=== PATIENT | female | born 1945 | race Caucasian/White ===

== ENCOUNTER 2016-09-26 08:25 | Inpatient (IN) | payer MEDICARE, OTHER ==
[~2016-09-26] VITALS: Ht 165.1 cm; Wt 81.8 kg
[2016-09-26] MEDS ORDERED: NEB-ALBUTEROL 2.5 MG/3 ML INH ONE (08:51)
[2016-09-26] MEDS ORDERED: Furosemide 40 MG/4 ML VIAL ONE (09:54)
[2016-09-26] MEDS ORDERED: NITROGLYCERIN 2% OINT 1 INCH PKT TOPICAL ONE (10:07)
[2016-09-26] MEDS ORDERED: ASPIRIN 81 MG CHEW TAB PO STA (11:55)
[2016-09-26] MEDS ORDERED: NITROGLYCERIN 50 MG/250 ML 250 ML IV PRN (11:55)
[2016-09-26] MEDS ORDERED: DOCUSATE SOD 100 MG CAP PO PRN ×2 (11:55→13:25)
[2016-09-26] MEDS ORDERED: NITROGLYCERIN SL 0.4 MG TAB SL PRN (11:55)
[2016-09-26] MEDS ORDERED: TRAMADOL 50 MG TAB PO PRN (11:55)
[2016-09-26] MEDS ORDERED: LORAZEPAM 0.5 MG TAB PO PRN (11:55)
[2016-09-26] MEDS ORDERED: SALINE FLUSH 10 ML FLUSH PRN (11:55)
[2016-09-26] MEDS ORDERED: MORPHINE 2 MG/ML SYR IV PRN (11:55)
[2016-09-26] MEDS ORDERED: CHOLESTYRAMINE LIGHT 4 GM PKT PO PRN (13:25)
[2016-09-26] MEDS ORDERED: AZITHROMYCIN 250 MG TAB PO ONE (13:30)
[2016-09-26] MEDS ORDERED: Furosemide 40 MG TAB PO SCH (13:31)
[2016-09-26 13:46] VITALS: BP_SYST 154; BP_SYST 156; RESP 16; TEMP 97.8
[2016-09-26 13:49] VITALS: BMI 30.1
[2016-09-26] MEDS: CHOLECALCIFEROL 1,000 UNITS TAB PO SCH (14:09)
[2016-09-26] MEDS: MAG OXIDE 400 MG TAB PO SCH ×2 (14:10→19:54)
[2016-09-26] MEDS: CYANOCOBA 500 MCG TAB PO SCH (14:11)
[2016-09-26] MEDS: KCL CR 10 MEQ TAB PO SCH (14:11)
[2016-09-26] MEDS: VENLAFAXINE XR 75 MG CAP PO SCH (14:11)
[2016-09-26 15:37] VITALS: BP_SYST 152; RESP 16; TEMP 100
[2016-09-26] MEDS: DUONEB INH SCH (16:23)
[2016-09-26 16:25] VITALS: RESP 20
[2016-09-26] MEDS: Furosemide 40 MG/4 ML VIAL IV SCH (18:12)
[2016-09-26] MEDS: NITROGLYCERIN 2% OINT 1 INCH PKT TOPICAL SCH (18:12)
[2016-09-26 19:30] VITALS: BP_SYST 143; RESP 16; TEMP 99.9
[2016-09-26] MEDS: SALINE FLUSH 10 ML FLUSH SCH (19:53)
[2016-09-26] MEDS: METFORMIN 500 MG TAB PO SCH (19:54)
[2016-09-26] MEDS: Atorvastatin 20 MG TAB PO SCH (19:54)
[2016-09-26] MEDS: ONDANSETRON 4 MG VIAL IV PRN (20:59)
[2016-09-26] MEDS: ACETAMINOPHEN 325 MG TAB PO PRN (22:21)
[2016-09-26 23:11] VITALS: BP_SYST 158; RESP 18; TEMP 101.4
[2016-09-27] MEDS: NITROGLYCERIN 2% OINT 1 INCH PKT TOPICAL SCH ×4 (00:56→23:46)
[2016-09-27] MEDS: Furosemide 40 MG/4 ML VIAL IV SCH ×2 (00:56→09:40)
[2016-09-27 03:34] VITALS: BP_SYST 134; RESP 14; TEMP 98.2
[2016-09-27] MEDS: SODIUM CHLORIDE 0.9% FLUSH BAG 500 ML IV SCH (05:38)
[2016-09-27] MEDS: DUONEB INH SCH ×3 (06:26→19:24)
[2016-09-27 07:49] VITALS: BP_SYST 132; RESP 18; TEMP 98
[2016-09-27] MEDS: ASPIRIN EC 81 MG TAB PO SCH (09:00)
[2016-09-27] MEDS: SALINE FLUSH 10 ML FLUSH SCH ×2 (09:39→19:58)
[2016-09-27] MEDS: AZITHROMYCIN 250 MG TAB PO SCH (09:40)
[2016-09-27] MEDS: VENLAFAXINE XR 75 MG CAP PO SCH (09:40)
[2016-09-27] MEDS: MAG OXIDE 400 MG TAB PO SCH ×2 (09:40→20:00)
[2016-09-27] MEDS: CHOLECALCIFEROL 1,000 UNITS TAB PO SCH (09:40)
[2016-09-27] MEDS: KCL CR 10 MEQ TAB PO SCH (09:41)
[2016-09-27] MEDS: CYANOCOBA 500 MCG TAB PO SCH (09:41)
[2016-09-27] MEDS: METFORMIN 500 MG TAB PO SCH ×2 (09:41→20:00)
[2016-09-27] MEDS ORDERED: MISSING DOSE XX ONE ×5 (09:45→21:45)
[2016-09-27] MEDS: Furosemide 40 MG TAB PO SCH (10:57)
[2016-09-27 12:23] VITALS: BP_SYST 131; RESP 18; TEMP 98.1
[2016-09-27 15:00] VITALS: BP_SYST 119; RESP 18; TEMP 98.7
[2016-09-27] MEDS: GUAIFEN/DM 10 ML UDC PO PRN ×2 (17:35→21:56)
[2016-09-27 19:21] VITALS: BP_SYST 129; RESP 18; TEMP 98.5
[2016-09-27] MEDS: Atorvastatin 20 MG TAB PO SCH (20:00)
[2016-09-27] MEDS: TEMAZEPAM 7.5 MG CAP PO PRN (21:56)
[2016-09-27 23:00] VITALS: BP_SYST 144; RESP 18; TEMP 98.6
[2016-09-28 03:43] VITALS: BP_SYST 145; RESP 18; TEMP 98.5
[2016-09-28] MEDS: SODIUM CHLORIDE 0.9% FLUSH BAG 500 ML IV SCH (04:19)
[2016-09-28] MEDS ORDERED: MISSING DOSE XX ONE (04:55)
[2016-09-28] MEDS: GUAIFEN/DM 10 ML UDC PO PRN ×2 (05:16→21:43)
[2016-09-28 07:38] VITALS: BP_SYST 150; RESP 16; TEMP 98.6
[2016-09-28] MEDS: DUONEB INH SCH ×3 (08:40→20:05)
[2016-09-28] MEDS: NITROGLYCERIN 2% OINT 1 INCH PKT TOPICAL SCH ×2 (08:41→15:07)
[2016-09-28] MEDS: ASPIRIN EC 81 MG TAB PO SCH (08:42)
[2016-09-28] MEDS: METFORMIN 500 MG TAB PO SCH ×2 (08:42→21:04)
[2016-09-28] MEDS: Furosemide 40 MG TAB PO SCH (08:42)
[2016-09-28] MEDS: VENLAFAXINE XR 75 MG CAP PO SCH (08:42)
[2016-09-28] MEDS: AZITHROMYCIN 250 MG TAB PO SCH (08:42)
[2016-09-28] MEDS: CYANOCOBA 500 MCG TAB PO SCH (08:42)
[2016-09-28] MEDS: CHOLECALCIFEROL 1,000 UNITS TAB PO SCH (08:42)
[2016-09-28] MEDS: MAG OXIDE 400 MG TAB PO SCH ×2 (08:43→21:05)
[2016-09-28] MEDS: KCL CR 10 MEQ TAB PO SCH (08:43)
[2016-09-28] MEDS: SALINE FLUSH 10 ML FLUSH SCH ×2 (08:44→21:04)
[2016-09-28 09:04] VITALS: Ht 165.1 cm; Wt 81.8 kg
[2016-09-28 11:22] VITALS: BP_SYST 148; RESP 16; TEMP 98.3
[2016-09-28 15:08] VITALS: BP_SYST 133; RESP 16; TEMP 98.1
[2016-09-28 20:18] VITALS: BP_SYST 142; RESP 18; TEMP 98.8
[2016-09-28] MEDS: Atorvastatin 20 MG TAB PO SCH (21:04)
[2016-09-28] MEDS: GUAIFENESIN ER 600 MG TABCR PO SCH (21:05)
[2016-09-28] MEDS: TEMAZEPAM 7.5 MG CAP PO PRN (21:05)
[2016-09-28 22:45] VITALS: BP_SYST 146; RESP 20; TEMP 99.2
[2016-09-29] MEDS: NITROGLYCERIN 2% OINT 1 INCH PKT TOPICAL SCH ×2 (00:24→08:11)
[2016-09-29] MEDS ORDERED: MISSING DOSE XX ONE (02:45)
[2016-09-29] MEDS: GUAIFEN/DM 10 ML UDC PO PRN (02:55)
[2016-09-29 03:05] VITALS: BP_SYST 156; RESP 16; TEMP 99.4
[2016-09-29] MEDS: SODIUM CHLORIDE 0.9% FLUSH BAG 500 ML IV SCH (06:00)
[2016-09-29] MEDS: DUONEB INH SCH ×2 (07:33→12:04)
[2016-09-29 07:34] VITALS: BP_SYST 153; RESP 18; TEMP 99.1
[2016-09-29] MEDS: CYANOCOBA 500 MCG TAB PO SCH (08:11)
[2016-09-29] MEDS: SALINE FLUSH 10 ML FLUSH SCH (08:11)
[2016-09-29] MEDS: METFORMIN 500 MG TAB PO SCH (08:12)
[2016-09-29] MEDS: VENLAFAXINE XR 75 MG CAP PO SCH (08:12)
[2016-09-29] MEDS: AZITHROMYCIN 250 MG TAB PO SCH (08:12)
[2016-09-29] MEDS: CHOLECALCIFEROL 1,000 UNITS TAB PO SCH (08:12)
[2016-09-29] MEDS: GUAIFENESIN ER 600 MG TABCR PO SCH (08:12)
[2016-09-29] MEDS: ACETAMINOPHEN 325 MG TAB PO PRN (08:13)
[2016-09-29] MEDS: ASPIRIN EC 81 MG TAB PO SCH (08:13)
[2016-09-29] MEDS: Furosemide 40 MG TAB PO SCH (08:13)
[2016-09-29] MEDS: KCL CR 10 MEQ TAB PO SCH (08:13)
[2016-09-29] MEDS: MAG OXIDE 400 MG TAB PO SCH (08:14)
[2016-09-29] MEDS ORDERED: PROMETHAZINE/COD 5 ML UDC PO PRN (10:25)
[2016-09-29] MEDS ORDERED: PREDNISONE 50 MG TAB PO SCH (10:25)
[2016-09-29 11:40] VITALS: BP_SYST 144; TEMP 98.9
[2016-09-29 11:41] VITALS: RESP 18
[2016-09-29] MEDS: ONDANSETRON 4 MG VIAL IV PRN (11:50)
[2016-09-29 13:44] VITALS: BP_SYST 144; RESP 18; TEMP 98.9
[2016-09-29] MEDS ORDERED: FAMOTIDINE 20 MG TAB PO SCH (21:00)
== END 2016-09-29 14:16 | disposition home or self-care (01) | DRG 293 ==
LOC: ER 08:25 → EMR 10:20 → PCU 11:49 → ENPENDDIS 09-27 10:55 → OBSVTOIN 09-27 10:55 → 3NT 09-27 14:51
PROVIDERS: ADMIT Internal Medicine Cardiovascular Disease; ATTEND Internal Medicine Cardiovascular Disease
DX: I11.0 Hypertensive heart disease with heart failure (principal); E11.9 Type 2 diabetes mellitus without complications; I48.91 Unspecified atrial fibrillation; J20.9 Acute bronchitis, unspecified; I50.33 Acute on chronic diastolic (congestive) heart failure; R79.1 Abnormal coagulation profile; F41.9 Anxiety disorder, unspecified; M19.90 Unspecified osteoarthritis, unspecified site; J30.2 Other seasonal allergic rhinitis; E78.5 Hyperlipidemia, unspecified; Z79.01 Long term (current) use of anticoagulants; Z79.84 Long term (current) use of oral hypoglycemic drugs
CPT/HCPCS: 36415; 71010; 71020; 80048; 80053; 80061; 81001; 82550; 82553; 82947; 83880; 84145; 84484; 85025; 85610; 85730; 87077; 87088; 87186; 87804; 93005; 94640; 94664; 94799; 96374; 99232; 99254

== ENCOUNTER 2016-10-02 10:12 | Inpatient (IN) | payer MEDICARE, OTHER ==
[~2016-10-02] VITALS: Ht 165.1 cm; Wt 90.7 kg
[2016-10-02] VITALS (13 sets, daily range): BP systolic 100–126; RESP 16–20; TEMP 98–99.1; Ht 165.1 cm; Wt 90.7 kg
[2016-10-02] MEDS ORDERED: DILTIAZEM 50 MG/10 ML VIAL IV ONE ×2 (10:42→12:22)
[2016-10-02] MEDS ORDERED: ED DILTIAZEM DRIP 125 ML IV ONE (10:42)
[2016-10-02] MEDS ORDERED: SODIUM CHLORIDE 0.9% 1,000 ML ONE (11:27)
[2016-10-02] MEDS ORDERED: DIGOXIN 0.5 MG/2 ML AMP IV STA (12:43)
[2016-10-02] MEDS ORDERED: METOPROLOL 5 MG/5 ML VIAL IV ONE (13:09)
[2016-10-02] MEDS ORDERED: ACETAMINOPHEN 325 MG TAB PO PRN (13:45)
[2016-10-02] MEDS ORDERED: GLUCAGON 1 MG VIAL IM PRN (13:45)
[2016-10-02] MEDS ORDERED: ONDANSETRON 4 MG VIAL IV PUSH PRN (13:45)
[2016-10-02] MEDS ORDERED: PHARMACY TO DOSE VANCOMYCIN IV SCH (13:45)
[2016-10-02] MEDS ORDERED: DEXTROSE 50% SYRINGE 50 ML IV PRN (13:45)
[2016-10-02] MEDS ORDERED: SALINE FLUSH 10 ML FLUSH PRN (13:45)
[2016-10-02] MEDS ORDERED: PHARMACY TO DOSE IV SCH ×2 (13:45)
[2016-10-02] MEDS ORDERED: SODIUM CHLORIDE 0.9% 1,000 ML IV SCH (13:45)
[2016-10-02] MEDS ORDERED: PHARMACY TO DOSE CEFEPIME IV SCH (13:50)
[2016-10-02] MEDS: DIGOXIN 0.5 MG/2 ML AMP IV SCH ×2 (15:45→20:35)
[2016-10-02] MEDS ORDERED: VANCOMYCIN 1,750 MG in SODIUM CHLORIDE 0.9% 500 ML IV ONE (16:30)
[2016-10-02] MEDS: CEFEPIME 2000 MG/100 ML D5W 100 ML IV SCH (18:08)
[2016-10-02] MEDS ORDERED: CHOLESTYRAMINE LIGHT 4 GM PKT PO PRN (18:20)
[2016-10-02] MEDS: CHOLECALCIFEROL 1,000 UNITS TAB PO SCH (18:29)
[2016-10-02] MEDS: KCL CR 10 MEQ TAB PO SCH (18:31)
[2016-10-02] MEDS: VENLAFAXINE XR 75 MG CAP PO SCH (18:31)
[2016-10-02] MEDS: CARDIZEM 1 MG/ML DRIP 125 ML IV SCH (19:52)
[2016-10-02] MEDS: MAG OXIDE 400 MG TAB PO SCH (20:35)
[2016-10-02] MEDS: SALINE FLUSH 10 ML FLUSH SCH (20:35)
[2016-10-02] MEDS: Atorvastatin 20 MG TAB PO SCH (20:35)
[2016-10-02] MEDS: GUAIFENESIN ER 600 MG TABCR PO SCH ×2 (21:25→22:12)
[2016-10-02] MEDS ORDERED: MISSING DOSE XX ONE (21:45)
[2016-10-02] MEDS: TEMAZEPAM 7.5 MG CAP PO PRN (22:12)
[2016-10-02] MEDS: guaiFENesin 200 MG TAB PO SCH (22:36)
[2016-10-03] VITALS (30 sets, daily range): BP systolic 95–150; RESP 16–20; TEMP 97.8–98.2
[2016-10-03] MEDS ORDERED: MISSING DOSE XX ONE ×4 (03:15→22:40)
[2016-10-03] MEDS: CARDIZEM 1 MG/ML DRIP 125 ML IV SCH ×3 (03:34→22:35)
[2016-10-03] MEDS: SODIUM CHLORIDE 0.9% FLUSH BAG 500 ML IV SCH (05:54)
[2016-10-03] MEDS ORDERED: SODIUM CHLORIDE 0.9% 250 ML IV ONE (08:20)
[2016-10-03] MEDS ORDERED: SODIUM CHLORIDE 0.9% 1,000 ML IV SCH ×2 (08:20→11:30)
[2016-10-03] MEDS: VENLAFAXINE XR 75 MG CAP PO SCH (08:48)
[2016-10-03] MEDS: SALINE FLUSH 10 ML FLUSH SCH ×2 (08:48→21:03)
[2016-10-03] MEDS: guaiFENesin 200 MG TAB PO SCH ×2 (08:49→21:04)
[2016-10-03] MEDS: DILTIAZEM CD 120 MG CAP PO SCH (08:49)
[2016-10-03] MEDS: KCL CR 10 MEQ TAB PO SCH (08:49)
[2016-10-03] MEDS: CHOLECALCIFEROL 1,000 UNITS TAB PO SCH (08:49)
[2016-10-03] MEDS: MAG OXIDE 400 MG TAB PO SCH ×2 (08:49→21:04)
[2016-10-03] MEDS ORDERED: DIGOXIN 0.125 MG TAB PO SCH (12:00)
[2016-10-03] MEDS: DUONEB INH SCH ×4 (12:06→23:53)
[2016-10-03] MEDS: METOPROLOL TART 25 MG TAB PO SCH ×2 (12:34→21:04)
[2016-10-03] MEDS ORDERED: VANCOMYCIN 1,000 MG in SODIUM CHLORIDE 0.9% 250 ML IV ONE (14:50)
[2016-10-03] MEDS: CEFEPIME 2000 MG/100 ML D5W 100 ML IV SCH (17:35)
[2016-10-03] MEDS: Atorvastatin 20 MG TAB PO SCH (21:04)
[2016-10-03] MEDS: TEMAZEPAM 7.5 MG CAP PO PRN (22:47)
[2016-10-04] VITALS (31 sets, daily range): BP systolic 107–148; RESP 16–20; TEMP 97.3–98.9
[2016-10-04] MEDS: SODIUM CHLORIDE 0.9% FLUSH BAG 500 ML IV SCH (06:00)
[2016-10-04] MEDS: DUONEB INH SCH ×5 (07:18→22:30)
[2016-10-04] MEDS: SALINE FLUSH 10 ML FLUSH SCH ×2 (08:00→20:36)
[2016-10-04] MEDS ORDERED: MISSING DOSE XX ONE ×3 (09:00→20:55)
[2016-10-04] MEDS: DILTIAZEM CD 120 MG CAP PO SCH (09:02)
[2016-10-04] MEDS: VENLAFAXINE XR 75 MG CAP PO SCH (09:02)
[2016-10-04] MEDS: MAG OXIDE 400 MG TAB PO SCH ×2 (09:02→20:37)
[2016-10-04] MEDS: KCL CR 10 MEQ TAB PO SCH (09:02)
[2016-10-04] MEDS: METOPROLOL TART 25 MG TAB PO SCH ×2 (09:02→20:37)
[2016-10-04] MEDS: CHOLECALCIFEROL 1,000 UNITS TAB PO SCH (09:03)
[2016-10-04] MEDS: guaiFENesin 200 MG TAB PO SCH ×2 (09:50→20:38)
[2016-10-04] MEDS ORDERED: CEFEPIME 2000 MG/100 ML D5W 100 ML IV SCH (11:00)
[2016-10-04] MEDS: CARDIZEM 1 MG/ML DRIP 125 ML IV SCH (14:53)
[2016-10-04] MEDS: Furosemide 40 MG TAB PO SCH (16:11)
[2016-10-04] MEDS: Atorvastatin 20 MG TAB PO SCH (20:38)
[2016-10-04] MEDS: DOXYCYCLINE 100 MG TAB PO SCH (20:39)
[2016-10-04] MEDS: TEMAZEPAM 7.5 MG CAP PO PRN (21:13)
[2016-10-05] VITALS (13 sets, daily range): BP systolic 103–157; RESP 15–18; TEMP 97.6–98.6
[2016-10-05] MEDS: SODIUM CHLORIDE 0.9% FLUSH BAG 500 ML IV SCH (05:04)
[2016-10-05] MEDS: SALINE FLUSH 10 ML FLUSH SCH ×2 (08:00→20:29)
[2016-10-05] MEDS: DUONEB INH SCH ×5 (08:04→23:16)
[2016-10-05] MEDS: METOPROLOL TART 25 MG TAB PO SCH (08:43)
[2016-10-05] MEDS: DOXYCYCLINE 100 MG TAB PO SCH ×2 (08:43→20:30)
[2016-10-05] MEDS: MAG OXIDE 400 MG TAB PO SCH ×2 (08:43→20:30)
[2016-10-05] MEDS: CHOLECALCIFEROL 1,000 UNITS TAB PO SCH (08:43)
[2016-10-05] MEDS: guaiFENesin 200 MG TAB PO SCH ×2 (08:43→20:30)
[2016-10-05] MEDS: VENLAFAXINE XR 75 MG CAP PO SCH (08:43)
[2016-10-05] MEDS: Furosemide 40 MG TAB PO SCH (08:43)
[2016-10-05] MEDS: DILTIAZEM CD 120 MG CAP PO SCH (08:43)
[2016-10-05] MEDS: KCL CR 10 MEQ TAB PO SCH (08:44)
[2016-10-05] MEDS: Atorvastatin 20 MG TAB PO SCH (20:29)
[2016-10-05] MEDS ORDERED: MISSING DOSE XX ONE (20:30)
[2016-10-05] MEDS: SOTALOL HCL 120 MG TAB PO SCH (20:30)
[2016-10-05] MEDS: TEMAZEPAM 7.5 MG CAP PO PRN (21:09)
[2016-10-06 03:21] VITALS: BP_SYST 153; RESP 18; TEMP 98.2
[2016-10-06] MEDS: SODIUM CHLORIDE 0.9% FLUSH BAG 500 ML IV SCH (05:45)
[2016-10-06 07:48] VITALS: BP_SYST 148; RESP 16; TEMP 97.9
[2016-10-06] MEDS: DUONEB INH SCH ×5 (07:51→22:51)
[2016-10-06] MEDS: SALINE FLUSH 10 ML FLUSH SCH ×2 (08:31→19:28)
[2016-10-06] MEDS: Furosemide 40 MG TAB PO SCH (08:32)
[2016-10-06] MEDS: guaiFENesin 200 MG TAB PO SCH ×2 (08:32→20:24)
[2016-10-06] MEDS: DOXYCYCLINE 100 MG TAB PO SCH ×2 (08:32→20:24)
[2016-10-06] MEDS: SOTALOL HCL 120 MG TAB PO SCH ×2 (08:32→20:24)
[2016-10-06] MEDS: VENLAFAXINE XR 75 MG CAP PO SCH (08:32)
[2016-10-06] MEDS: MAG OXIDE 400 MG TAB PO SCH ×2 (08:32→20:23)
[2016-10-06] MEDS: DILTIAZEM CD 120 MG CAP PO SCH (08:32)
[2016-10-06] MEDS: CHOLECALCIFEROL 1,000 UNITS TAB PO SCH (08:33)
[2016-10-06] MEDS: KCL CR 10 MEQ TAB PO SCH (08:33)
[2016-10-06 10:56] VITALS: BP_SYST 156; RESP 18; TEMP 97.6
[2016-10-06 14:56] VITALS: BP_SYST 145; RESP 16; TEMP 98
[2016-10-06 19:20] VITALS: BP_SYST 150; RESP 16; TEMP 98.3
[2016-10-06] MEDS: TEMAZEPAM 7.5 MG CAP PO PRN (20:23)
[2016-10-06] MEDS: Atorvastatin 20 MG TAB PO SCH (20:24)
[2016-10-06 23:32] VITALS: BP_SYST 160; RESP 16; TEMP 97.9
[2016-10-07 02:58] VITALS: BP_SYST 175; RESP 18; TEMP 98.4
[2016-10-07 05:02] VITALS: BP_SYST 156
[2016-10-07] MEDS: SODIUM CHLORIDE 0.9% FLUSH BAG 500 ML IV SCH (06:00)
[2016-10-07 07:10] VITALS: BP_SYST 155; RESP 18; TEMP 98.1
[2016-10-07] MEDS: DUONEB INH SCH ×2 (07:19→10:43)
[2016-10-07] MEDS: DILTIAZEM CD 120 MG CAP PO SCH (08:47)
[2016-10-07] MEDS: SALINE FLUSH 10 ML FLUSH SCH (08:47)
[2016-10-07] MEDS: VENLAFAXINE XR 75 MG CAP PO SCH (08:47)
[2016-10-07] MEDS: SOTALOL HCL 120 MG TAB PO SCH (08:47)
[2016-10-07] MEDS: KCL CR 10 MEQ TAB PO SCH (08:48)
[2016-10-07] MEDS: CHOLECALCIFEROL 1,000 UNITS TAB PO SCH (08:48)
[2016-10-07] MEDS: MAG OXIDE 400 MG TAB PO SCH (08:48)
[2016-10-07] MEDS: guaiFENesin 200 MG TAB PO SCH (08:48)
[2016-10-07] MEDS: DOXYCYCLINE 100 MG TAB PO SCH (08:48)
[2016-10-07] MEDS ORDERED: MISSING DOSE XX ONE (08:55)
[2016-10-07] MEDS: Furosemide 40 MG TAB PO SCH (10:20)
[2016-10-07 11:06] VITALS: BP_SYST 155; RESP 18; TEMP 98.1
[2016-10-07 11:11] VITALS: BP_SYST 155; RESP 18; TEMP 98.1
== END 2016-10-07 14:39 | disposition home or self-care (01) | DRG 871 ==
LOC: CANRESERV → ENRESERVTM → ENRESERVDT → ER 10:12 → EMR 13:54 → ENPENDDIS 13:54 → 5THE 15:39
PROVIDERS: ADMIT Internal Medicine; ATTEND Internal Medicine
DX: A41.9 Sepsis, unspecified organism (principal); J18.9 Pneumonia, unspecified organism; N17.9 Acute kidney failure, unspecified; I13.0 Hypertensive heart and chronic kidney disease with heart failure and stage 1 through stage 4 chronic kidney disease, or unspecified chronic kidney disease; I50.32 Chronic diastolic (congestive) heart failure; I48.0 Paroxysmal atrial fibrillation; K75.9 Inflammatory liver disease, unspecified; Y95 Nosocomial condition; E78.5 Hyperlipidemia, unspecified; F41.9 Anxiety disorder, unspecified; R79.1 Abnormal coagulation profile; Z79.01 Long term (current) use of anticoagulants; Z79.52 Long term (current) use of systemic steroids; R74.0 Nonspecific elevation of levels of transaminase and lactic acid dehydrogenase [LDH]; E11.9 Type 2 diabetes mellitus without complications
CPT/HCPCS: 36415; 71010; 76770; 80048; 80053; 80162; 80202; 81001; 82553; 82570; 82947; 83605; 83735; 83874; 83880; 83935; 84100; 84300; 84439; 84443; 84484; 85007; 85025; 85027; 85610; 85730; 87040; 87071; 87088; 87205; 87278; 87299; 87804; 93005; 94640; 94667; 94668; 94799; 96361; 96365; 96366; 96367; 96368; 96376; 99223; 99233; 99239